=== PATIENT | female | born 1950 | race Caucasian/White ===

== ENCOUNTER 2018-01-14 01:42 | Outpatient (CLI) | payer MEDICARE, BC ==
[~2018-01-14 01:42] MED LIST: BUPR150T8 PO; PRO2.5T PO; VALS320T10 PO
== END 2018-01-14 23:59 | disposition home or self-care (01) ==
LOC: DIABETIC 01:42
PROVIDERS: ATTEND Surgery
DX: Z71.3 Dietary counseling and surveillance (principal); E66.01 Morbid (severe) obesity due to excess calories; I10 Essential (primary) hypertension
CPT/HCPCS: 97802

== ENCOUNTER 2018-06-05 00:44 | Outpatient (CLI) | payer MEDICARE, BC | END 2018-06-05 23:59 | disposition home or self-care (01) | LOC: DIABETIC 00:44 | PROVIDERS: ATTEND Surgery | DX: Z71.3 Dietary counseling and surveillance (principal); E66.01 Morbid (severe) obesity due to excess calories; I10 Essential (primary) hypertension | CPT/HCPCS: 97802 ==

== ENCOUNTER 2018-12-22 04:45 | Outpatient (CLI) | payer MEDICARE, BC | END 2018-12-22 23:59 | disposition home or self-care (01) | LOC: DIABETIC 04:45 | PROVIDERS: ATTEND Surgery | DX: E66.01 Morbid (severe) obesity due to excess calories (principal); I10 Essential (primary) hypertension | CPT/HCPCS: 97803 ==

== ENCOUNTER 2019-06-25 00:56 | Outpatient (CLI) | payer MEDICARE, BC | END 2019-06-25 23:59 | disposition home or self-care (01) | LOC: DIABETIC 00:56 | PROVIDERS: ATTEND Surgery | DX: E66.01 Morbid (severe) obesity due to excess calories (principal); Z71.3 Dietary counseling and surveillance; Z98.890 Other specified postprocedural states; Z68.43 Body mass index [BMI] 50.0-59.9, adult | CPT/HCPCS: 97803 ==